=== PATIENT | female | born 1970 | race Caucasian/White ===

== ENCOUNTER 2018-12-08 10:52 | Emergency (ER) | payer MEDICARE, MEDICAID ==
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
--- NOTE | 2018-12-08 12:03 | RADIOLOGY REPORT (SQ) ---
EXAM DESCRIPTION: KNEE RIGHT 4 VIEWS COMPLETED DATE/TIME: 12/08/2018 11:51 am REASON FOR STUDY: pain and swelling COMPARISON: None. NUMBER OF VIEWS: Four views. TECHNIQUE: AP, lateral, and both oblique radiographic images acquired of the right knee. LIMITATIONS: None. FINDINGS: MINERALIZATION: Normal. BONES: No acute fracture or dislocation. No worrisome bone lesions. JOINT: Small suprapatellar joint effusion. SOFT TISSUES: No soft tissue swelling. No radio-opaque foreign body. OTHER: No other significant finding. IMPRESSION: Small suprapatellar knee joint effusion. No acute fracture or malalignment TECHNICAL DOCUMENTATION: JOB ID: [id number] [employer]- All Rights Reserved Reading location - IP/workstation name: [email or web address]
[2018-12-08 12:42] VITALS: BP 126/83
== END 2018-12-08 12:21 | disposition home or self-care (01) ==
LOC: ER 10:52
DX: S89.91XA Unspecified injury of right lower leg, initial encounter (principal); M25.561 Pain in right knee; W19.XXXA Unspecified fall, initial encounter; Y92.009 Unspecified place in unspecified non-institutional (private) residence as the place of occurrence of the external cause; F17.210 Nicotine dependence, cigarettes, uncomplicated; Z91.040 Latex allergy status; Z88.0 Allergy status to penicillin; Z90.710 Acquired absence of both cervix and uterus
CPT/HCPCS: 99283; 73564; L1830

== ENCOUNTER 2019-07-05 10:19 | Emergency (ER) | payer MEDICARE, MEDICAID ==
[2019-07-05] MEDS ORDERED: ONDANSETRON HCL INJ/PF 4 MG/2 ML SDV IV ONE (11:19)
[2019-07-05] MEDS ORDERED: NORMAL SALINE 1000 ML 1,000 ML IV ONE (11:19)
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
[2019-07-05 12:07] LABS: ABSOLUTE EOSINOPHILS # (AUTO) 0.2 10^3/uL (0.0-0.6); ABSOLUTE LYMPHOCYTES (AUTO) 2.7 10^3/uL (0.5-4.7); ABSOLUTE MONOCYTES (AUTO) 0.6 10^3/uL (0.1-1.4); ABSOLUTE NEUT (AUTO) 4.9 10^3/uL (1.7-8.2); BASOPHILS % (AUTO) 0.6 % (0-2); EOSINOPHILS % (AUTO) 2.1 % (0-6); HEMATOCRIT 43.4 % (36.0-47.0); HEMOGLOBIN 14.8 g/dL (12.0-15.5); LYMPHOCYTES % (AUTO) 31.8 % (13-45); MEAN CORPUSCULAR HEMOGLOBIN 30.7 pg (27.0-33.4); MEAN CORPUSCULAR HGB CONC 34.2 g/dL (32.0-36.0); MEAN CORPUSCULAR VOLUME 90 fl (80-97); MONOCYTES % (AUTO) 7.1 % (3-13); PLATELET COUNT 248 10^3/uL (150-450); RED BLOOD COUNT 4.82 10^6/uL (3.72-5.28); RED CELL DISTRIBUTION WIDTH 14.9 % (11.5-14.0); SEGMENTED NEUTROPHILS % (AUTO) 58.4 % (42-78); TOTAL CELLS COUNTED % (AUTO) 100 %; WHITE BLOOD COUNT 8.4 10^3/uL (4.0-10.5)
[2019-07-05 12:08] LABS: APPEARANCE,URINE CLEAR; BILIRUBIN,URINE NEGATIVE (NEGATIVE); COLOR,URINE YELLOW; GLUCOSE, URINE NEGATIVE (NEGATIVE); KETONES,URINE NEGATIVE (NEGATIVE); LEUKOCYTE ESTERASE,URINE NEGATIVE (NEGATIVE); NITRITE,URINE NEGATIVE (NEGATIVE); PROTEIN,URINE NEGATIVE (NEGATIVE); URINE SPECIFIC GRAVITY 1.016; UROBILINOGEN,URINE NEGATIVE mg/dL (<2.0)
[2019-07-05 12:31] LABS: ALBUMIN 4.6 g/dL (3.5-5.0); ALKALINE PHOSPHATASE 61 U/L (38-126); ANION GAP 9 (5-19); ASPARTATE AMINO TRANSFERASE 17 U/L (14-36); BILIRUBIN,DIRECT 0.1 mg/dL (0.0-0.4); BILIRUBIN,TOTAL 0.3 mg/dL (0.2-1.3); BLOOD UREA NITROGEN 15 mg/dL (7-20); CALCIUM 10.8 mg/dL (8.4-10.2); CARBON DIOXIDE 28 mmol/L (22-30); CHLORIDE 103 mmol/L (98-107); CHOLESTEROL 251.92 mg/dL (0-200); GLUCOSE 97 mg/dL (75-110); POTASSIUM 4.8 mmol/L (3.6-5.0); TOTAL PROTEIN 7.1 g/dL (6.3-8.2); TRIGLYCERIDES 298 mg/dL (<150)
--- NOTE | 2019-07-05 12:41 | RADIOLOGY REPORT (SQ) ---
EXAM DESCRIPTION: CHEST 2 VIEWS COMPLETED DATE/TIME: 07/05/2019 12:32 pm REASON FOR STUDY: cough for 2 weeks COMPARISON: None. EXAM PARAMETERS: NUMBER OF VIEWS: two views TECHNIQUE: Digital Frontal and Lateral radiographic views of the chest acquired. RADIATION DOSE: NA LIMITATIONS: none FINDINGS: LUNGS AND PLEURA: No opacities, masses or pneumothorax. No pleural effusion. MEDIASTINUM AND HILAR STRUCTURES: No masses or contour abnormalities. HEART AND VASCULAR STRUCTURES: Heart normal size. No evidence for failure. BONES: No acute findings. HARDWARE: None in the chest. OTHER: No other significant finding. IMPRESSION: NO ACUTE RADIOGRAPHIC FINDING IN THE CHEST. TECHNICAL DOCUMENTATION: JOB ID: [id number] [employer] All Rights Reserved Reading location - IP/workstation name: [email or web address]
[2019-07-05 12:42] LABS: DIRECT LDL 177 mg/dL (<100)
[2019-07-05 12:44] LABS: VLDL CHOLESTEROL 59.6 mg/dL (10-31)
[2019-07-05 12:47] LABS: FREE T4 (FREE THYROXINE) 1.1 ng/dL (0.78-2.19)
[2019-07-05 13:01] LABS: THYROID STIMULATING HORMONE 1.96 uIU/mL (0.47-4.68)
[2019-07-05 13:17] VITALS: BP 148/84
== END 2019-07-05 13:16 | disposition home or self-care (01) ==
LOC: ER 10:19
DX: G89.29 Other chronic pain (principal); M25.561 Pain in right knee; R11.2 Nausea with vomiting, unspecified; R19.7 Diarrhea, unspecified; R05 Cough; R09.81 Nasal congestion; R53.81 Other malaise; R53.1 Weakness; R42 Dizziness and giddiness; R09.82 Postnasal drip; J34.89 Other specified disorders of nose and nasal sinuses; R07.0 Pain in throat; F17.200 Nicotine dependence, unspecified, uncomplicated; Z91.040 Latex allergy status; Z88.0 Allergy status to penicillin
CPT/HCPCS: 99283; 96361; 96374; 36415; 84439; 84443; 84703; 85025; 80053; 81001; 80164; 80061; 71046; J2405; J7030

== ENCOUNTER → 2019-08-08 | Outpatient (CLI) | payer MEDICARE, MEDICAID ==
--- NOTE | 2019-08-08 13:33 | RADIOLOGY REPORT (SQ) ---
EXAM DESCRIPTION: CHEST PA/LATERAL COMPLETED DATE/TIME: 08/08/2019 1:24 pm REASON FOR STUDY: PRE-OP COMPARISON: 07/05/2019 EXAM PARAMETERS: NUMBER OF VIEWS: two views TECHNIQUE: Digital Frontal and Lateral radiographic views of the chest acquired. RADIATION DOSE: NA LIMITATIONS: none FINDINGS: LUNGS AND PLEURA: No opacities, masses or pneumothorax. No pleural effusion. MEDIASTINUM AND HILAR STRUCTURES: No masses or contour abnormalities. HEART AND VASCULAR STRUCTURES: Heart normal size. No evidence for failure. BONES: No acute findings. HARDWARE: None in the chest. OTHER: No other significant finding. IMPRESSION: NO SIGNIFICANT RADIOGRAPHIC FINDING IN THE CHEST. TECHNICAL DOCUMENTATION: JOB ID: [id number] [employer]- All Rights Reserved Reading location - IP/workstation name: [email or web address]
[2019-08-08 13:52] LABS: ABSOLUTE EOSINOPHILS # (AUTO) 0.1 10^3/uL (0.0-0.6); ABSOLUTE LYMPHOCYTES (AUTO) 2.2 10^3/uL (0.5-4.7); ABSOLUTE MONOCYTES (AUTO) 0.4 10^3/uL (0.1-1.4); ABSOLUTE NEUT (AUTO) 4.5 10^3/uL (1.7-8.2); BASOPHILS % (AUTO) 0.2 % (0-2); HEMATOCRIT 38.7 % (36.0-47.0); HEMOGLOBIN 12.9 g/dL (12.0-15.5); LYMPHOCYTES % (AUTO) 30.9 % (13-45); MEAN CORPUSCULAR HEMOGLOBIN 30.1 pg (27.0-33.4); MEAN CORPUSCULAR HGB CONC 33.3 g/dL (32.0-36.0); MEAN CORPUSCULAR VOLUME 90 fl (80-97); MONOCYTES % (AUTO) 5.1 % (3-13); PLATELET COUNT 220 10^3/uL (150-450); RED BLOOD COUNT 4.28 10^6/uL (3.72-5.28); RED CELL DISTRIBUTION WIDTH 14.8 % (11.5-14.0); SEGMENTED NEUTROPHILS % (AUTO) 62.8 % (42-78); TOTAL CELLS COUNTED % (AUTO) 100 %; WHITE BLOOD COUNT 7.1 10^3/uL (4.0-10.5)
[2019-08-08 14:04] LABS: APPEARANCE,URINE CLEAR; BILIRUBIN,URINE NEGATIVE (NEGATIVE); COLOR,URINE YELLOW; GLUCOSE, URINE NEGATIVE (NEGATIVE); KETONES,URINE NEGATIVE (NEGATIVE); LEUKOCYTE ESTERASE,URINE NEGATIVE (NEGATIVE); NITRITE,URINE NEGATIVE (NEGATIVE); PROTEIN,URINE NEGATIVE (NEGATIVE); URINE SPECIFIC GRAVITY 1.012; UROBILINOGEN,URINE NEGATIVE mg/dL (<2.0)
[2019-08-08 14:08] LABS: ANION GAP 9 (5-19); BLOOD UREA NITROGEN 10 mg/dL (7-20); CALCIUM 9.6 mg/dL (8.4-10.2); CARBON DIOXIDE 28 mmol/L (22-30); CHLORIDE 103 mmol/L (98-107); GLUCOSE 105 mg/dL (75-110); POTASSIUM 4.2 mmol/L (3.6-5.0)
--- NOTE | 2019-08-08 18:59 | EKG REPORT ---
SEVERITY:- NORMAL ECG - SINUS RHYTHM : Confirmed by: Catrachita Jimenez MD 08-Aug-2019 18:58:19
== END ==
LOC: OD 12:52
PROVIDERS: ATTEND Orthopaedic Surgery
DX: Z01.810 Encounter for preprocedural cardiovascular examination (principal); Z01.811 Encounter for preprocedural respiratory examination; Z01.812 Encounter for preprocedural laboratory examination
CPT/HCPCS: 36415; 71046; 80048; 81001; 85025; 93005; 93010

== ENCOUNTER 2020-01-23 15:06 | Emergency (ER) | payer MEDICARE, MEDICAID ==
[2020-01-23] MEDS ORDERED: MINERAL OIL 30 ML UDCUP PR ONE (15:44)
[2020-01-23] MEDS ORDERED: MAGNESIUM CITRATE 296 ML BOTTLE PO ONE (15:44)
--- NOTE | 2020-01-23 16:04 | RADIOLOGY REPORT (SQ) ---
EXAM DESCRIPTION: KUB/ABDOMEN (SINGLE VIEW) IMAGES COMPLETED DATE/TIME: 01/23/2020 3:49 pm REASON FOR STUDY: eval for constipation COMPARISON: None. NUMBER OF VIEWS: One view. TECHNIQUE: Supine radiographic image of the abdomen acquired. LIMITATIONS: None. FINDINGS: BOWEL GAS PATTERN: Gas pattern is nonobstructive. There is large amount of stool througho ut the entire colon. CALCIFICATIONS: No suspicious calcifications. SOFT TISSUES: No gross mass or suggestion of organomegaly. HARDWARE: None in the abdomen. BONES: No acute fracture. No worrisome bone lesions. OTHER: No other significant finding. IMPRESSION: Constipation. No obstruction. TECHNICAL DOCUMENTATION: JOB ID: [id number] [employer]- All Rights Reserved Reading location - IP/workstation name: [email or web address]
--- NOTE | 2020-01-23 16:37 | ER Document Report ---
HPI <SALAZARKAY - Last Filed: 01/23/20 20:02> - HPI Pain Level: Denies Notes: 49-year-old female patient presenting to the emergency department chief complaint of possible constipation. Patient reports pain at the rectal area. She states she tried using a wooden spoon to get the hard stool out of her rectum. She states she has not had normal bowel movement at least 1 week. She denies any nausea, vomiting or fever. Denies any abdominal pain. - CONSTITUTIONAL Constitutional: DENIES: Fever, Chills - GASTROINTESTINAL Gastrointestinal: DENIES: Abdominal Pain, Black / Bloody Stools - REPRODUCTIVE Reproductive: DENIES: : <CHACHO VILLARREAL - Last Filed: 01/24/20 12:18> - HPI Time Seen by Provider: 01/23/20 15:09 Past Medical History - General Information source: Patient - Social History Smoking Status: Current Every Day Smoker Chew tobacco use (# tins/day): No Frequency of alcohol use: Occasional Drug Abuse: Marijuana Family History: Reviewed & Not Pertinent Patient has suicidal ideation: No Patient has homicidal ideation: No Renal/ Medical History: Denies: Hx Peritoneal Dialysis Malignancy Medical History: Reports: Hx Cervical Cancer - Abnormal cells to the cervix had a conization and a hysterectomy Musculoskeletal Medical History: Reports Hx Arthritis, Reports Hx Musculoskeletal Deformity, Reports Hx Musculoskeletal Trauma Psychiatric Medical History: Reports: Hx Bipolar Disorder Past Surgical History: Reports: Hx Gynecologic Surgery - [facility], D/C, Hx Hysterectomy - Immunizations Immunizations up to date: Yes Hx Diphtheria, Pertussis, Tetanus Vaccination: Yes <CHACHO VILLARREAL - Last Filed: 01/24/20 12:18> Vertical Provider Document - CONSTITUTIONAL Notes: PHYSICAL EXAMINATION: GENERAL: Well-appearing, well-nourished and in no acute distress. HEAD: Atraumatic, normocephalic. EYES: Pupils equal round and reactive to light, extraocular movements intact, conjunctiva are normal. ENT: Nares patent, oropharynx clear without exudates. Moist mucous membranes. NECK: Normal range of motion, supple without lymphadenopathy LUNGS: Breath sounds clear to auscultation bilaterally and equal. No wheezes rales or rhonchi. HEART: Regular rate and rhythm without murmurs ABDOMEN: Soft, nontender, nondistended abdomen. No guarding, no rebound. No masses appreciated. Female : deferred Musculoskeletal: Normal range of motion, no pitting or edema. No cyanosis. NEUROLOGICAL: Cranial nerves grossly intact. Normal speech, normal gait. Normal sensory, motor exams PSYCH: Normal mood, normal affect. SKIN: Warm, Dry, normal turgor, no rashes or lesions noted. - INFECTION CONTROL TRAVEL OUTSIDE OF THE [place] IN LAST 30 DAYS: No <CHACHO VILLARREAL - Last Filed: 01/24/20 12:18> Course - Vital Signs Vital signs: Temp Pulse Resp BP Pulse Ox 98.3 F 95 16 127/94 H 98 01/23/20 15:16 01/23/20 15:16 01/23/20 15:16 01/23/20 15:16 01/23/20 15:16 <KAY SALAZAR - Last Filed: 01/23/20 20:02> - Re-evaluation Re-evalutation: 01/23/20 18:46 A rn social work was consulted on this patient as patient reports that she has nowhere to go. Social work came and spoke with the patient. She gave a list of resources to the patient. As soon as the rn social work left the room the nurse went to the room to discharge the patient at which point the patient told the nurse that she is now suicidal. I put in a psych consult and we are pending direction from the mental health team. Patient cleared for discharge by mental health team, see their notes. - Vital Signs Vital signs: Temp Pulse Resp BP Pulse Ox 98.3 F 95 16 127/94 H 98 01/23/20 15:16 01/23/20 15:16 01/23/20 15:16 01/23/20 15:16 01/23/20 15:16 <CHACHO VILLARREAL - Last Filed: 01/24/20 12:18> Discharge <KAY SALAZAR - Last Filed: 01/23/20 20:02> <CHACHO VILLARREAL - Last Filed: 01/24/20 12:18> - Discharge Clinical Impression: Family discord, Suicidal ideation Constipation Qualifiers: Constipation type: unspecified constipation type Qualified Code(s): K59.00 - Constipation, unspecified Clinical Impression: (Ruled Out): Depressed Condition: Stable Disposition: HOME, SELF-CARE Additional Instructions: Constipation Constipation is a common problem. It is especially likely as you get older . Constipation is a common cause of abdominal pain, but sometimes causes no symptoms at all. Causes of constipation include certain medications, dehydration, diets, inactivity, and low-fiber intake. Rarely, it can be a symptom of underlying disease. The physician has evaluated you for this. Avoid constipation by eating a diet high in fiber, fruits, and vegetables. Drink plenty of liquids. Get regular exercise. If possible, avoid constipating medicines like narcotic pain medication. Some vitamin tablets can cause constipation. Stool softeners may be needed for difficult cases. An excellent stool softener is Konsyl which is available at [employer], and [employer]. Just add a teaspoon to a glass of pineapple or orange juice daily or twice a day if needed. Laxatives are useful for occasional constipation. You should use them only when necessary. Too-frequent use can make your bowels dependent on them. Some over the counter laxatives available without prescription are: Milk of Magnesia, 1-2 tablespoons twice a day Dulcolax, 5 mg pill or 10 mg suppository. Citrate of Magnesia, 4-5 ounces a day for a day or two For acute constipation, Fleet's Enemas and Dulcolax suppositories are helpful. Chronic, group home use of laxatives or enemas is not a good idea. Your bowel may become dependant on them. You do not need to have a bowel movement every day. Many people do fine with a bowel movement every three or four days. You should call your doctor or return for re-evaluation if you pass blood in the stool, or if you develop fever or increasing abdominal pain. DEPRESSION: Your evaluation reveals that you have mental depression. While symptoms may be vague, they often include disturbance of sleep, fatigue, loss of appetite, and general loss of interest in life. While depression may be a side effect of drugs, or a reaction to a major change in your life, many cases have no known cause. If depression is acute, and related to a major loss in your life, you can expect it to clear completely with time. If you have been depressed a long time, are prone to repeated bouts of depression or low mood, or have been thinking of suicide, get help. Depression can be treated with anti-depressant medication and counselling. Long-term depression will often take a few weeks to clear, even with appropriate medication. Follow-up care is important. SUICIDAL IDEATION: Suicidal ideation is a common medical term for thoughts about suicide, which may be as detailed as a formulated plan, without the suicidal act itself. Although most people who undergo suicidal ideation do not commit suicide, some go on to make suicide attempts. The range of suicidal ideation varies greatly from fleeting to detailed planning, role playing, and unsuccessful attempts. While thoughts about suicide are common, most people do not carry out serious actions to commit suicide. Based upon your evaluation and discussion with you, we do not believe you are currently at risk to act upon your thoughts of suicide. You have agreed to return to the Emergency Department, at any time, if you feel inclined to act upon your suicidal thoughts. FOLLOW-UP CARE: If you have been referred to a physician for follow-up care, call the physicians office for an appointment as you were instructed or within the next two days. If you experience worsening or a significant change in your symptoms, notify the physician immediately or return to the Emergency Department at any time for re-evaluation. Referrals: [facility] [Outside] - Follow up as needed
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
[2020-01-23 21:03] VITALS: BP 110/69
== END 2020-01-23 21:03 | disposition home or self-care (01) ==
LOC: ER 15:06
DX: K59.00 Constipation, unspecified (principal); R45.851 Suicidal ideations; F17.200 Nicotine dependence, unspecified, uncomplicated; Z63.8 Other specified problems related to primary support group
CPT/HCPCS: 99285; 74018; A9270 ×2; J3490

== ENCOUNTER 2020-01-23 22:53 | Emergency (ER) | payer MEDICARE, MEDICAID ==
[2020-01-23] MEDS ORDERED: DICYCLOMINE HCL INJ 20 MG/2 ML AMPULE IM ONE (23:55)
--- NOTE | 2020-01-23 23:57 | ER Document Report ---
ED General - General Chief Complaint: Abdominal Pain Stated Complaint: LOWER ABDOMINAL PAIN Time Seen by Provider: 01/23/20 23:35 Notes: 49-year-old female presents emergency department complaining of continued cramping in her lower abdomen and into her back. States she was diagnosed with constipation earlier today, has not had a bowel movement in approximately a week until she was seen today. Patient was given magnesium citrate after which she had a large bowel movement however she feels like she still has more stool in there. Denies blood in her stool, denies nausea or vomiting, denies dysuria. States that she is homeless and the homeless shelters or not accepting new residents. States she went to [facility] and was told that she could not stay there just because she was homeless, states that she was told she had to have some form of substance abuse. Patient denies substance abuse. Currently denies suicidal ideation. She was admitting suicidal ideation passively earlier today. TRAVEL OUTSIDE OF THE [place] IN LAST 30 DAYS: No - Related Data Allergies/Adverse Reactions: latex Allergy (Verified 01/23/20 15:17) Penicillins Allergy (Verified 01/23/20 15:17) Past Medical History - General Information source: Patient - Social History Smoking Status: Current Every Day Smoker Frequency of alcohol use: None Drug Abuse: Marijuana Family History: Reviewed & Not Pertinent Patient has suicidal ideation: No Patient has homicidal ideation: No Renal/ Medical History: Denies: Hx Peritoneal Dialysis Malignancy Medical History: Reports: Hx Cervical Cancer - Abnormal cells to the cervix had a conization and a hysterectomy Musculoskeletal Medical History: Reports Hx Arthritis, Reports Hx Musculoskeletal Deformity, Reports Hx Musculoskeletal Trauma Psychiatric Medical History: Reports: Hx Bipolar Disorder Past Surgical History: Reports: Hx Gynecologic Surgery - [facility], D/C, Hx Hysterectomy - Immunizations Immunizations up to date: Yes Hx Diphtheria, Pertussis, Tetanus Vaccination: Yes Review of Systems - Review of Systems Constitutional: No symptoms reported Gastrointestinal: See HPI, Abdominal pain, Constipation Musculoskeletal: See HPI, Back pain -: Yes All other systems reviewed and negative Physical Exam - Vital signs Vitals: Temp Pulse Resp BP Pulse Ox 98.5 F 105 H 16 125/80 96 01/23/20 23:05 01/23/20 23:05 01/23/20 23:05 01/23/20 23:05 01/23/20 23:05 Interpretation: Tachycardic - Notes Notes: GENERAL: Laying in bed sleeping on the right-hand side, awakens easily, interacts well. No acute distress. HEAD: Normocephalic, atraumatic EYES: Pupils equal, round and reactive to light, extraocular movements intact. ENT: Oral mucosa moist, tongue midline. NECK: Full range of motion, supple, trachea midline. LUNGS: Clear to auscultation bilaterally, no wheezes, rales or rhonchi, no respiratory distress. HEART: Regular rate and rhythm, no murmurs, gallops, rubs. ABDOMEN: Soft, nontender, nondistended, bowel sounds present in all 4 quadrants. EXTREMITIES: Moves all 4 extremities spontaneously, no edema, radial and dorsalis pedis pulses 2/4 bilaterally. No cyanosis. NEUROLOGICAL: Alert and oriented x3, normal speech. PSYCH: Normal mood, normal affect. SKIN: Warm, Dry, normal turgor, no rashes or lesions noted. Course - Re-evaluation Re-evalutation: 01/24/20 02:17 Patient is really in no acute distress. Comparing her KUB from earlier today to tonight she does appear to have had a moderate amount of stool cleansed from her colon however she still does have a surprisingly large amount of stool left. At this point I will recommend she drink another bottle of magnesium citrate and then go on a MiraLAX regimen for the next 2 weeks until she is having regular bowel movements. Patient will be given Bentyl to help with cramping in her abdomen but she is also counseled that magnesium citrate causes cramping. Patient will be discharged home. - Vital Signs Vital signs: Temp Pulse Resp BP Pulse Ox 98.5 F 105 H 16 125/80 96 01/23/20 23:05 01/23/20 23:05 01/23/20 23:05 01/23/20 23:05 01/23/20 23:05 Discharge - Discharge Clinical Impression: Abdominal cramping, Homelessness Constipation Qualifiers: Constipation type: unspecified constipation type Qualified Code(s): K59.00 - Constipation, unspecified Condition: Stable Disposition: HOME, SELF-CARE Additional Instructions: Please dissolve 1 scoop of MiraLAX in a glass of water once a day to treat constipation. You may increase to twice a day if needed to create soft bowel movements and you may decrease to every other day if you develop diarrhea. Please drink plenty of fluids. Please slowly increase your fiber. To initially help clear out all of the stool that is left in your colon please drink another bottle of magnesium citrate. I would not drink this until you have easy access to a toilet. All stimulant laxatives, such as magnesium citrate, can cause abdominal cramp ing. I have prescribed a limited number of Bentyl that may help with the cramping however you should expect to have some cramping while you are taking the magnesium citrate. There is no sign of obstruction on your x-ray today. You have less stool on your x-ray than you did earlier today however you still have a lot of stool. It is very important that you take the MiraLAX as directed until you have been having any bowel movements that are the consistency of soft serve ice cream for at least 2 weeks. You may then slowly decrease the amount of MiraLAX that you are taking every day as you increase your water and fiber intake to maintain soft stools at least every other day. Prescriptions: Dicyclomine HCl [Bentyl 20 mg Tablet] 20 mg PO QIDP PRN #20 tablet PRN Reason: Magnesium Citrate 295 ml PO ONCE PRN #1 solution PRN Reason:
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
[2020-01-24 03:18] VITALS: BP 112/75
== END 2020-01-24 02:53 | disposition home or self-care (01) ==
LOC: ER 22:53
DX: R10.30 Lower abdominal pain, unspecified (principal); K59.00 Constipation, unspecified; Z59.0 Homelessness
CPT/HCPCS: 99283; 96372; 74018; J0500

== ENCOUNTER 2020-01-24 05:23 | Emergency (ER) | payer MEDICARE, MEDICAID ==
--- NOTE | 2020-01-24 10:20 | ER Document Report ---
Entered by SORAYA DAVIES SCRIBE 01/24/20 0622 Acting as scribe for:ZANE SMYTH, DO ED Psych Disorder / Suicide - General Information source: Patient TRAVEL OUTSIDE OF THE [place] IN LAST 30 DAYS: No - General Chief Complaint: Suicidal Ideation Stated Complaint: SUICIDAL IDEATIONS Time Seen by Provider: 01/24/20 05:52 Primary Care Provider: [facility] [Outside] - Follow up as needed Notes: This homeless 49 year old female patient with bipolar disorder and PTSD presents to the emergency department today with complaints of suicidal ideation. This is the third visit to this ED in the past 24 hours for this patient. This patient was just released from an inpatient psychiatric stay at [facility]. The patient's mother has a no contact order on the patient, and as soon as the patient was discharged from [facility] she went to her mother's house, law enforcement was called. Patient endorses suicidal ideation. (ZANE SMYTH) - Related Data Allergies/Adverse Reactions: latex Allergy (Verified 01/23/20 15:17) Penicillins Allergy (Verified 01/23/20 15:17) Past Medical History - General Information source: Patient, [facility] Records - Social History Smoking Status: Current Some Day Smoker Cigarette use (# per day): Yes Frequency of alcohol use: None Drug Abuse: None Lives with: Family Family History: Reviewed & Not Pertinent Patient has suicidal ideation: Yes Patient has homicidal ideation: No Malignancy Medical History: Reports: Hx Cervical Cancer - Abnormal cells to the cervix had a conization and a hysterectomy Musculoskeletal Medical History: Reports Hx Arthritis, Reports Hx Musculoskeletal Deformity, Reports Hx Musculoskeletal Trauma Psychiatric Medical History: Reports: Hx Bipolar Disorder, Hx Post Traumatic Stress Disorder Past Surgical History: Reports: Hx Gynecologic Surgery - [facility], D/C, Hx Hysterectomy - Immunizations Immunizations up to date: Yes Hx Diphtheria, Pertussis, Tetanus Vaccination: Yes Review of Systems - Review of Systems Constitutional: No symptoms reported EENT: No symptoms reported Cardiovascular: No symptoms reported Respiratory: No symptoms reported Gastrointestinal: No symptoms reported Genitourinary: No symptoms reported Female Genitourinary: No symptoms reported Musculoskeletal: No symptoms reported Skin: No symptoms reported Hematologic/Lymphatic: No symptoms reported Neurological/Psychological: See HPI, Depression, Suicidal ideation -: Yes All other systems reviewed and negative Physical Exam - Vital signs Vitals: Temp Pulse Resp BP Pulse Ox 98.1 F 93 18 132/87 H 97 01/24/20 05:01/24/20 05:01/24/20 05:01/24/20 05:01/24/20 05:29 - Notes Notes: Physical Exam: General: Alert. Appears non-toxic. HEENT: Normocephalic. Atraumatic. PERRL. Extraocular movements intact. Oropharynx clear. Neck: Supple. Non-tender. Respiratory: No respiratory distress. Clear and equal breath sounds bilaterally. Cardiovascular: Regular rate and rhythm. Abdominal: Normal Inspection. Non-tender. No distension. Normal Bowel Sounds. Back: No gross abnormalities. Extremities: Moves all four extremities. Upper extremities: Normal inspection. Normal ROM. Lower extremities: Normal inspection. No edema. Normal ROM. Neurological: Normal cognition. AAOx4. Normal speech. Psychological: Normal affect. Normal Mood. Skin: Warm. Dry. Normal color. (ZANE SMYTH) Course - Re-evaluation Re-evalutation: 01/24/20 13:48 MDM Pt has been seen and evaluated by Psych. She wants to leave. NO SI. Behavioral Health feels she is safe to go. Will have her followup. (ZANE SMYTH) - Vital Signs Vital signs: Temp Pulse Resp BP Pulse Ox 98.1 F 93 18 132/87 H 97 01/24/20 05:29 01/24/20 05:01/24/20 05:01/24/20 05:01/24/20 05:29 Discharge - Discharge Clinical Impression: Homelessness, Family discord, Suicidal ideation Condition: Stable Disposition: HOME, SELF-CARE Additional Instructions: You have been evaluated by both medical and behavioral health teams for passive suicidal ideation and have been deemed appropriate for discharge. While in the emergency department you received the following services: Medical screening and assessment, nursing services, dietary services, pharmacological services, one-on-one counseling and/or psychotherapy, environmental services, and continuous observation by a patient safety representative. Please contact the [facility] for assistance in obtaining your personal belongings and [facility] for new medications. AT ANY TIME, IF YOUR SYMPTOMS CHANGE SIGNIFICANTLY OR WORSEN OR YOU DEVELOP NEW SYMPTOMS, RETURN TO THE EMERGENCY DEPARTMENT IMMEDIATELY FOR RE-EVALUATION. Return here for any problems or any concerns. Referrals: [facility] [Outside] - Follow up as needed Discharge Summary (Adult) Discharge Medication: Ondansetron [Zofran Odt 4 mg Tablet] 1 - 2 tab PO Q4H PRN #15 tab.rapdis 07/05/19 Dicyclomine HCl [Bentyl 20 mg Tablet] 20 mg PO QIDP PRN #20 tablet 01/24/20 Magnesium Citrate 295 ml PO ONCE PRN #1 solution 01/24/20 I personally performed the services described in the documentation, reviewed and edited the documentation which was dictated to the scribe in my presence, and it accurately records my words and actions.
--- NOTE | 2020-01-24 13:07 | PSYCHOLOGICAL NOTE ---
Psych Note - Psych Note Date seen by psych provider: 01/24/20 Time seen by psych provider: 12:35 Psych Note: Reason for Consult: Suicidal ideation Patient reports that she came back into [facility] after last night because "I felt helpless, and I need my medicine, I could not sit, and it was raining out there." She reports that she did try to go to [facility] after discharge for voluntary assessment. She reports that when she walked up to the parking lot she was told to go and talk with these 2 ladies that were smoking on the sidewalk. She disclosed she was told "homeless is not a crisis, go check her self back into the hospital." Patient reports that she does feel better now that she is gotten some sleep and states that "I will be ready to go after lunch." Patient identifies refilling her medications at [facility] stating that she can do this once yearly and has not done this during this current year so should be able to get her medications. Patient confirms she understands the emergency department is used for emergencies and is not a fci. Patient is alert and orientated to person, place, time and circumstance. Mood is overall euthymic with congruent affect as evidenced by smiling engaging with clinician. Patient reports passive suicidal ideation i.e. no plans means or intent. She denies homicidal ideation. Delusions are absent and behaviors congruent with an intact reality based presentation ie organized and linear thought process. Eye contact is well-maintained. Conversational speech is within normal rate, tone and prosody. Intellectual abilities appear to be within the average range. Attention and concentration are good. Insight, judgment, impulse control are fair. Impression\\plan: Patient is cleared from acute psychiatric services. Patient still does not meet IVC criteria per [place] GS 122C (patient was evaluated last night 01/23/2020); there has been no change or increase in symptoms or stressors. Patient identifies that it was raining and she had nowhere else to go. Patient continues to report passive suicidal ideation to her current situation of being homeless and having family discord with her mother currently. She demonstrates forward thought processes with getting her medications refilled at [facility] since she is unable to obtain them from the family home. It was also recommended to the patient to discuss her options with [facility] about getting her personally belongings. She was also recommended to follow-up with outpatient mental health services for continued medication management and therapeutic services. Patient is homeless and has been provided economic resource information from discharge planning. Dr. Berumen was consulted to care management of this patient; attending physicians in agreement with recommendations and disposition.
[2020-01-24 14:34] VITALS: BP 117/84
== END 2020-01-24 14:10 | disposition home or self-care (01) ==
LOC: ER 05:23
DX: R45.851 Suicidal ideations (principal); Z63.8 Other specified problems related to primary support group; F32.9 Major depressive disorder, single episode, unspecified; Z59.0 Homelessness; F17.210 Nicotine dependence, cigarettes, uncomplicated; Z88.8 Allergy status to other drugs, medicaments and biological substances; Z88.0 Allergy status to penicillin
CPT/HCPCS: 99285